=== PATIENT | male | born 1955 | race Caucasian/White ===

== ENCOUNTER 2019-06-10 13:41 | Outpatient (CLI) | payer MEDICARE, OTHER ==
[~2019-06-10 13:41] MED LIST: ALPR0.25 PO; AMLO5TAB2 PO; AMLO5TAB5 PO; ASP325TEC PO; CRV6.25T GT; MONT10TA21 PO; OMEP20TA2 PO; PANT20TA2 PO; SIMV20TA3 PO; TEMA30CA PO; VALS320T8 PO; ZOLM5TAB8 PO
== END 2019-06-10 14:35 | disposition home or self-care (01) ==
LOC: SLEEP 13:41
PROVIDERS: ATTEND Otolaryngology Otolaryngology/Facial Plastic Surgery
DX: G47.33 Obstructive sleep apnea (adult) (pediatric) (principal); G47.10 Hypersomnia, unspecified

== ENCOUNTER 2019-07-18 19:44 | Outpatient (CLI) | payer MEDICARE, OTHER | END 2019-07-19 04:23 | disposition home or self-care (01) | LOC: SLEEP 19:44 | PROVIDERS: ATTEND Nurse Practitioner | DX: G47.33 Obstructive sleep apnea (adult) (pediatric) (principal) | CPT/HCPCS: 95811 ==

== ENCOUNTER 2022-05-16 06:39 | Outpatient (CLI) | payer MEDICARE, OTHER ==
[~2022-05-16] VITALS: Ht 177.8 cm; Wt 111.2 kg
[2022-05-16] MEDS ORDERED: OMEG100032 PO (15:39)
[2022-05-16] MEDS ORDERED: TMSL.4C PO (15:39)
[2022-05-16] MEDS ORDERED: VALS1TAB80 PO (15:39)
[2022-05-16] MEDS ORDERED: AMLO-251 PO (15:39)
== END 2022-05-16 15:43 | disposition home or self-care (01) ==
LOC: PREOP 06:39
PROVIDERS: ATTEND Surgery
DX: Z01.818 Encounter for other preprocedural examination (principal)

== ENCOUNTER 2022-05-29 12:45 | Day surgery (SDC) | payer MEDICARE, OTHER ==
[~2022-05-29] VITALS: Ht 177.8 cm; Wt 111.2 kg
[~2022-05-29 12:45] MED LIST changes: +AMLO-251 PO; +OMEG100032 PO; +TMSL.4C PO; +VALS1TAB80 PO
[2022-05-29] MEDS ORDERED: LACTATED RINGERS 1,000 ML IV STA (12:47)
[2022-05-29] MEDS ORDERED: HURRICAINE EXT TUBE (BENZOCAINE) XX PRN (13:00)
--- NOTE | 2022-05-29 13:06 | Progress Note-Pre Operative ---
Pre-Operative Progress Note Date of Available H&P: May 09, 2022 Date H&P Reviewed: May 29, 2022 Time H&P Reviewed: 13:06 History & Physical: H&P Reviewed, Patient Examed, No changes noted Pre-Operative Diagnosis: generalized abdominal pain ISSAC ZHU DO May 29, 2022 13:06
[2022-05-29 13:10] VITALS: BP 146/94
[2022-05-29] MEDS ORDERED: PROPOFOL INJECTION 50 ML IV ONE (13:48)
--- NOTE | 2022-05-29 14:17 | Discharge Inst-Simple/Standard ---
Discharge Inst-Standard Reconcile Patient Problems Problems Reviewed?: Yes Patient Instructions/Follow Up Plan of Care/Instructions/FU: Follow up 2 week, Dr. Wiseman Activity as Tolerated: Yes Discharge Diet: Regular Diet ISSAC WISEMAN DO May 29, 2022 14:17
[2022-05-29 14:20] VITALS: BP 84/54
[2022-05-29 14:25] VITALS: BP 84/54
[2022-05-29 14:50] VITALS: BP 84/54
--- NOTE | 2022-05-29 21:51 | OPERATIVE REPORT ---
DATE OF SERVICE: 05/29/2022 PREOPERATIVE DIAGNOSIS: Generalized abdominal pain. POSTOPERATIVE DIAGNOSIS: Normal esophagogastroduodenoscopy and diverticulosis. PROCEDURE: EGD with biopsies, colonoscopy. SURGEON: Issac Wiseman DO ANESTHESIA: Per PROBATE PARALEGAL. ESTIMATED BLOOD LOSS: None. COMPLICATIONS: None. INDICATIONS: The patient is a 67-year-old male who has some generalized abdominal pain. He was recommended to have EGD and colonoscopy for further evaluation. He understands risks and benefits of procedure and wishes to proceed. Consent was signed in the chart. DESCRIPTION OF PROCEDURE: The patient was taken to endoscopy suite, placed in left lateral recumbent position. Timeout was performed. Scope was inserted in mouth, down the esophagus, stomach and into the duodenum without difficulty. No polyps, masses or ulcerations within the duodenum. Scope was slowly retracted back into the stomach where it was further insufflated. No polyps, masses or ulcerations. Biopsy of the antrum was obtained. Scope was retroflexed noting no other pathology. Scope was returned to its normal position, slowly withdrawn to distal esophagus. Biopsy of GE junction was obtained. No polyps, masses or ulcerations. Scope was slowly retracted back until completely removed. Digital rectal exam was performed. No palpable polyps, masses or ulcerations. Scope was inserted in the rectum and advanced all the way to cecum with minimal difficulty. Prep was adequate. Scope was slowly retracted back. No polyps, masses or ulcerations within the cecum, ascending, transverse, descending and sigmoid colon. In the sigmoid colon, minimal amount of diverticulosis present. Once in the rectum, scope was retroflexed noting no other pathology. Scope was returned to its normal position, slowly withdrawn until completely removed. The patient tolerated the procedure well without any complications, taken to recovery room in stable condition. RECOMMENDATIONS: The patient will need repeat colonoscopy in 10 years unless family history of colon cancer, which would then be 5 years. The patient will follow up in office in two weeks to discuss pathology results. If continues to have abdominal pain, we will discuss further workup radiographically. Job ID: [id number] DocumentID: [id number] Dictated Date: 05/29/2022 14:17:24 Inflated Pad Buffer Date: 05/29/2022 21:50:54 Dictated By: ISSAC WISEMAN DO
== END 2022-05-29 15:12 | disposition home or self-care (01) ==
LOC: ENDO 12:45
PROVIDERS: ATTEND Surgery
DX: K57.30 Diverticulosis of large intestine without perforation or abscess without bleeding (principal); K31.89 Other diseases of stomach and duodenum; Z79.899 Other long term (current) drug therapy

== ENCOUNTER → 2022-06-14 | Outpatient (CLI) | payer MEDICARE, OTHER ==
--- NOTE | 2022-06-14 08:58 | Diagnostic Imaging Report ---
INDICATION: Right upper quadrant abdominal pain Gallbladder sonography performed in routine fashion The liver shows diffuse increased echogenicity compatible with fatty infiltration. No focal liver lesion is seen. Portal vein is patent with hepatopetal flow. Gallbladder shows no stones or wall thickening. Common duct is obscured by overlying gas but there is no intrahepatic biliary dilatation. Pancreas and aorta are also obscured by overlying gas. The IVC appeared unremarkable. The right kidney appeared normal and measured 12.4 cm in length. There is no ascites. IMPRESSION: Mild fatty change of the liver without focal lesion. Unremarkable gallbladder. Otherwise somewhat limited study. Dictated by: Dictated on workstation # [id number]
== END ==
LOC: RAD 07:41
PROVIDERS: ATTEND Surgery
DX: K76.0 Fatty (change of) liver, not elsewhere classified (principal)
CPT/HCPCS: 76705

== ENCOUNTER → 2022-06-15 | Outpatient (CLI) | payer MEDICARE, OTHER ==
[~2022-06-15] MED LIST changes: +CATHETER FLUSH 10 ML SYR IVP PRN
--- NOTE | 2022-06-15 12:08 | Diagnostic Imaging Report ---
Indication: Right upper quadrant pain. Patient was administered 5.5 mCi technetium 99m Choletec intravenously and imaging over the abdomen was performed. At 60 minutes, the patient ingested 8 ounces of Ensure and a gallbladder ejection fraction was calculated. There is homogeneous uptake of activity by the liver with prompt excretion of activity into the common duct and gallbladder. There is normal passage of activity into the small bowel. Gallbladder ejection fraction is normal at 45%. IMPRESSION: Normal HIDA scan and gallbladder ejection fraction. Dictated by: Dictated on workstation # [id number]
== END ==
LOC: CARD 07:44
PROVIDERS: ATTEND Surgery
DX: R10.11 Right upper quadrant pain (principal)
CPT/HCPCS: 78227; A9537

== ENCOUNTER 2022-06-27 05:35 | Outpatient (CLI) | payer MEDICARE, OTHER ==
[~2022-06-27] VITALS: Ht 177.8 cm; Wt 108.9 kg
[~2022-06-27 05:35] MED LIST changes: -CATHETER FLUSH 10 ML SYR IVP PRN
[2022-06-28] MEDS ORDERED: ESCI-2 PO (13:15)
== END 2022-06-28 13:21 | disposition home or self-care (01) ==
LOC: PREOP 05:35
PROVIDERS: ATTEND Surgery
DX: Z01.818 Encounter for other preprocedural examination (principal)

== ENCOUNTER 2022-07-05 07:33 | Day surgery (SDC) | payer MEDICARE, OTHER ==
[~2022-07-05] VITALS: Ht 177.8 cm; Wt 108.9 kg
[2022-07-05] VITALS (10 sets, daily range): BP systolic 118–154; BP diastolic 73–92
[~2022-07-05 07:33] MED LIST changes: +ESCI-2 PO
[2022-07-05] MEDS ORDERED: LIDOCAINE PF 2% 5 ML (XYLOCAINE) VIAL ONE ×2 (08:13→09:37)
[2022-07-05] MEDS ORDERED: ROCURONIUM 10 MG/ML 5 ML SYRINGE IV ONE ×2 (08:13→09:37)
[2022-07-05] MEDS ORDERED: ONDANSETRON 4 MG/2 ML (SDV) Z0FRAN ONE ×2 (08:13→09:37)
[2022-07-05] MEDS ORDERED: proPOfol 200 MG/20 ML (DIPRIVAN) VIAL IV ONE ×2 (08:13→09:37)
[2022-07-05] MEDS ORDERED: fentaNYL INJ 100 MCG/2 ML AMP ONE (08:14)
[2022-07-05] MEDS ORDERED: MIDAZOLAM 2 MG/2 ML (VERSED) VIAL ONE ×2 (08:14→08:58)
[2022-07-05] MEDS ORDERED: BUP/EPI 0.25% 1:200,000 (MARCAINE) 30 ML VIAL ONE (08:31)
--- NOTE | 2022-07-05 08:41 | Progress Note-Pre Operative ---
Pre-Operative Progress Note Date of Available H&P: Jun 18, 2022 Date H&P Reviewed: Jul 05, 2022 Time H&P Reviewed: 08:31 History & Physical: H&P Reviewed, Patient Examed, No changes noted Pre-Operative Diagnosis: biliary dyskinesia, ruq abd pain ISSAC ZHU DO Jul 05, 2022 08:41
[2022-07-05] MEDS ORDERED: MONT-40 PO (08:44)
[2022-07-05] MEDS: LACTATED RINGERS 1,000 ML IV PRN ×2 (08:44→09:39)
[2022-07-05] MEDS ORDERED: ceFAZolin INJECTION 2,000 MG in NS (IVPB) 50 ML IV ONE (08:45)
[2022-07-05] MEDS ORDERED: ceFAZolin INJECTION 2,000 MG ONE (08:52)
[2022-07-05] MEDS ORDERED: NS (IVPB) 50 ML ONE (08:53)
[2022-07-05] MEDS ORDERED: NEOSTIGMINE (BLOXIVERZ ) 1 MG/1ML 10 ML VIAL ONE ×2 (09:37→10:00)
[2022-07-05] MEDS ORDERED: GLYCOPYRROLATE 0.2 MG/ML (ROBINUL) 2 ML VIAL ONE (09:37)
[2022-07-05] MEDS ORDERED: ACHD5005 PO (09:48)
[2022-07-05] MEDS ORDERED: DOCU-143 PO (09:48)
--- NOTE | 2022-07-05 09:49 | Discharge Inst-Simple/Standard ---
Discharge Inst-Standard Discharge Medications New, Converted or Re-Newed RX: Transmitted to Pharmacy Patient Instructions/Follow Up Plan of Care/Instructions/FU: 2 weeks obdulia Activity as Tolerated: No Discharge Diet: Regular Diet Other Inst to Patient Follow up Appt: Make appointment for 2 weeks. Instructions: No lifting greater than 10 pounds. No strenuous activity. May shower in 24 hours, no tub bath or soaking. Use incentive spirometer at home as directed. No Smoking Skin/Wound Care: You have special glue over incision, it will fall off on it's own. Symptoms to Report: Appetite Changes, Extremity Discoloration, Numbness/Tingling, Swelling Increased, Bleeding Excessive, Eyesight Changes, Pain Increased, Urine Color Change, Constipation(Persistent), Fever over 101 degree F, Pain/Pressure in chest, Urinating Difficulty, Cough Up/Vomit Blood, Heart Beat Irreg/Pounding, Pain/Pressure in jaw, Vaginal Bleeding Increase, Cramps in feet or legs, Lightheadedness, Pain/Pressure in shoulder, Diarrhea(Persistent), Memory Changes Suddenly, Questions/Concerns, Weight gain consecutive days, Dizziness/Fainting, Nausea/Vomiting, Shortness of Breath, Weight gain over 2 pounds. If eyes or skin turn yellow notify physician. If questions or concerns contact your physician Or seek help at emergency department. ISSAC ZHU DO Jul 05, 2022 09:49
--- NOTE | 2022-07-05 09:52 | Progress Note-Post Operative ---
Post-Operative Progess Note Surgeon (s)/Methods Analyst Data Processing (s) Surgeon ISSAC ZHU DO Methods Analyst Data Processing: Dr. Herring to assist in retraction dissection and closure Pre-Operative Diagnosis biliary dyskinesia, ruq abd pain Post-Operative Diagnosis same Procedure & Operative Findings Date of Procedure 07/05/22 Procedure Performed/Findings PROCEDURE: Laparoscopic cholecystectomy with intraoperative cholangiogram. COMPLICATIONS: None. PROCEDURE: The patient was taken to the operating suite and was prepped and draped in sterile fashion. A surgical pause was performed. Just superior to the umbilicus, a 12 mm incision was made. Dissection was taken down to the fascia, which was then scored and grasped with a Joanne and the abdomen was then entered. A 0 Vicryl suture was placed in a [id number]-[id number] fashion and a Garcia trocar was placed and secured. Pneumoperitoneum was achieved. A 5mm trochar place in the subxyphoid and 2 in the right upper quadrant. The gallbladder was then grasped and elevated. Minimal adhesions to the gallbladder present and dissected off. The cystic duct, and cystic artery were then dissected out. Clip was placed on the distal portion of the cystic duct which was then partially transected. An arrow catheter was inserted into the duct. The cholangiogram was then performed. No filing defects and contrast made its way into the duodenum. Catheter removed. Clips were placed on proximal portion of the cystic duct and then the duct was then transected. Clips were placed along the proximal and distal portion of the cystic artery which was then transected. Hook cautery was used to dissect the gallbladder from the gallbladder fossa achieving hemostasis. The gallbladder was placed in an Endobag and removed through the 12 mm trocar site. The abdomen was then reinspected. Copious amounts of irrigation were used to irrigate the abdomen and there were no signs of active bleeding. Hemostasis had been achieved. The 12 mm fascial defect was then closed with 0 Vicryl suture that had been placed in a [id number]-rj-vizie fashion. The abdomen was then desufflated, the trocars were removed. The abdomen was then washed and dried. The skin was then closed using 4-0 Monocryl in a subcuticular fashion. The abdomen was washed and dried and Skin Affix was place over incisions. Patient tolerated the procedure well without any complications and was taken to the recovery room in stable condition. Anesthesia Type general Estimated Blood Loss Estimated blood loss (mL): minimal Specimens/Packing Specimens Removed gallbladder ISSAC ZHU DO Jul 05, 2022 09:52
--- NOTE | 2022-07-05 10:29 | Anesthesia-General Post-Op ---
General Patient Condition Mental Status/LOC: Same as Preop Cardiovascular: Satisfactory Nausea/Vomiting: Absent Respiratory: Satisfactory Pain: Controlled Complications: Absent Post Op Complications Complications None Follow Up Care/Instructions Patient Instructions None needed. Anesthesia/Patient Condition Patient Condition Patient is doing well, no complaints, stable vital signs, no apparent adverse anesthesia problems. No complications reported per nursing. JOHN FALL CRNA Jul 05, 2022 10:29
[2022-07-05] MEDS ORDERED: morphine INJ 10 MG/ML 1ML (SYR OR VIAL) IVP ONE (10:30)
[2022-07-05] MEDS ORDERED: ONDANSETRON 4 MG/2 ML (SDV) Z0FRAN IVP PRN (10:30)
[2022-07-05] MEDS ORDERED: SEVOFLURANE (ULTANE) 15 ML INHAL SOLN ONE (10:31)
[2022-07-05] MEDS ORDERED: HYDROcodone/APAP 5 MG/325 MG (LORTAB) TAB PO ONE (13:00)
--- NOTE | 2022-07-05 16:33 | Diagnostic Imaging Report ---
INDICATION: Cholecystectomy Operative cholangiogram performed in the routine fashion with injection via the cystic duct stump in surgery. Single view obtained, 11.0 seconds of fluoroscopy time was used Intraoperative view demonstrates normal caliber of biliary tree with no filling defect or obstruction. Contrast passes to the duodenum. IMPRESSION: Unremarkable operative cholangiogram. Dictated by: Dictated on workstation # [id number]
== END 2022-07-05 13:30 | disposition home or self-care (01) ==
LOC: SDC 07:33
PROVIDERS: ATTEND Surgery
DX: K82.8 Other specified diseases of gallbladder (principal); K81.1 Chronic cholecystitis; K21.9 Gastro-esophageal reflux disease without esophagitis; Z79.899 Other long term (current) drug therapy
CPT/HCPCS: 76000; 87081